=== PATIENT | male | born 1955 | race Caucasian/White ===

== ENCOUNTER 2016-10-26 13:30 | Day surgery (SDC) | payer OTHER ==
[~2016-10-26] VITALS: Ht 172.7 cm; Wt 83.9 kg
[~2016-10-26 13:30] MED LIST: 0.9% Sodium Chloride 1,000 ML IV SCH; Sodium Biphos-Phos 133 mL Enema RECTAL PRN; Sodium Chloride LOK Flush 10 mL Syringe IV PRN; fentaNYL-PF 50 mCg/mL 2 mL Inj IVPUSH PRN
[2016-10-26 13:45] VITALS: BP 151/96; PULSE 73; RESP 17; O2SAT 97
[2016-10-26] MEDS ORDERED: ASPI-973 PO (13:47)
[2016-10-26 14:48] VITALS: BP 115/73; PULSE 69; RESP 13; O2SAT 95
[2016-10-26 15:01] VITALS: BP 122/71; PULSE 74; RESP 14; O2SAT 95
[2016-10-26 15:03] VITALS: BP 139/84; PULSE 74; RESP 14; O2SAT 96
--- NOTE | 2016-10-26 15:05 | ENDO ---
[address] [address] ENDOSCOPY PROCEDURE PATIENT: KATHRYN RICHARDSON : 1955 MR#: [id number] ADMIT: 10/26/2016 JOB ID: [id number] DATE OF SERVICE: 10/26/2016 PREPROCEDURE DIAGNOSIS: Personal history of colon polyps. POSTPROCEDURE DIAGNOSIS: A large proximal transverse colon polyp. PROCEDURE: 1. Colonoscopy with hot snare and cold forceps polypectomy, Roya ink tattoo. 2. Roya ink was injected in two separate sites to giorgio the polypectomy site. ENDOSCOPIST: Dr. Gilberto Burns MEDICATIONS: 1. Versed 6 mg. 2. Fentanyl 125 mcg. INDICATIONS: The patient is a 61-year-old man, who previously underwent colonoscopy in [address] Wallis. At that time he was found to have a single tubular adenoma in the sigmoid colon at 20 cm. He was recommended to have five year followup. After discussion of risks and benefits, he agreed to proceed with colonoscopy with biopsies. FINDINGS: There was a large flat 2 cm polyp in the proximal transverse colon at 65 cm from the anal verge. This was resected piecemeal with a hot snare and retrieved with a Calderón net. The remaining portions around the perimeter were removed with cold forceps. Roya ink tattoo was injected to giorgio the site. It is possible that small residual adenomatous fragments remain. DESCRIPTION OF PROCEDURE: Procedural sedation was achieved. The patient was connected to hemodynamic monitoring, pulse oximetry, capnography. After digital rectal examination, the PCF-H190DL colonoscope was inserted until the appendiceal orifice and ileocecal valve were visualized and photo documented. The terminal ileum was intubated for approximately 10 cm which was normal. The scope was then withdrawn and the mucosa was carefully inspected. In the proximal transverse colon at 65 cm from the anal verge, there was a 2 cm irregular mostly flat polyp. This was resected piecemeal using a hot snare. At the periphery of the polypectomy site with hot snare, there was some residual adenomatous material which was resected again piecemeal using cold forceps. At the completion of polypectomy, there may have been a tiny amount of residual adenomatous tissue, but there was concern that further polypectomy could significantly increase his chance of perforation. The large polypectomy fragments were retrieved with a Calderón net. As the scope was then withdrawn, no additional mucosal abnormalities were identified. The scope was withdrawn and the procedure was terminated. Retroflexion was not performed because of the Calderón net with a polyp at the end of the scope. He tolerated the entire procedure well. RECOMMENDATIONS: I will mail him a letter with biopsy results. Because of possible incomplete polypectomy, recommend repeat colonoscopy in three months to re-evaluate that area.
--- NOTE | 2016-10-31 14:41 | PATH ---
SURGICAL PATHOLOGY Attending Physician:Izabela Mahoney CASE STATUS: Signed Out PATIENT NAME: KATHRYN RICHARDSON PID: [id number] : 1955 DATE COLLECTED:10/26/2016 00:00 SPECIMEN: Colon, Polyp CLINICAL HISTORY: 1). TRANSVERSE POLYP @65 CM FINAL DIAGNOSIS: 1.TRANSVERSE COLON POLYP AT 65 CM: POLYPOID MIXED TUBULAR AND VILLIFORM ADENOMA. ICD10 D12.3 GROSS DESCRIPTION: The specimen is received in formalin, labeled with the patient's name, sublabeled as transverse polyp at 60 cm and at 65 cm, and consists of a crews rubbery sessile polyp received in multiple pieces (1.7 x 1.5 x 0.8 cm in aggregate). Ink code: black-resection margin. Section code: (A, B) polyp, serially sectioned. Specimen entirely submitted. Note: 10/28 correct site is verified at 65 cm. 10/29/16 JM MICRO DESCRIPTION: See diagnosis. ICD-9 CODES: CPT CODES: 1: 28998 Electronically Signed Out Chris Valle MD [facility] Pathology [facility] [address], [place] [address] Technical component performed at [facility], [address] [place] [address] Ave[address], [place], [address]
== END 2016-10-26 23:59 | disposition home or self-care (01) ==
LOC: END 13:30
PROVIDERS: ATTEND Student in an Organized Health Care Education/Training Program
DX: Z12.11 Encounter for screening for malignant neoplasm of colon (principal); D12.3 Benign neoplasm of transverse colon; Z86.010 Personal history of colon polyps; E11.9 Type 2 diabetes mellitus without complications; E78.5 Hyperlipidemia, unspecified; I10 Essential (primary) hypertension
CPT/HCPCS: 45381; 45385; 99153; G0500; J2250; J3010; J7030